=== PATIENT | female | born 1960 | race Caucasian/White ===

== ENCOUNTER → 2016-06-01 | Day surgery (SDC) | payer OTHER | END | disposition home or self-care (01) | LOC: FAS 06:50 | DX: Z12.11 Encounter for screening for malignant neoplasm of colon (principal); K63.5 Polyp of colon; Z86.010 Personal history of colon polyps; Z79.899 Other long term (current) drug therapy; Z90.49 Acquired absence of other specified parts of digestive tract; Z98.890 Other specified postprocedural states; Z90.710 Acquired absence of both cervix and uterus; Z80.0 Family history of malignant neoplasm of digestive organs | CPT/HCPCS: 88305; J2704 ==

== ENCOUNTER → 2021-08-18 | Day surgery (SDC) | payer OTHER ==
[~2021-08-18] VITALS: Ht 165.1 cm; Wt 57.4 kg
[~2021-08-18] MED LIST: ALEVE220 MG PO; ANTIVERT25 MG PO; BONIVA 150MG T150 MG PO; GABAPENTIN400 MG PO; KEFLEX500 MG PO; NORCO 5-325 TA1 EACH PO; PHENERGAN12.5 M1 PO
== END | disposition home or self-care (01) ==
LOC: FAS 06:52
DX: Z12.11 Encounter for screening for malignant neoplasm of colon (principal); D12.3 Benign neoplasm of transverse colon; K62.1 Rectal polyp; K57.30 Diverticulosis of large intestine without perforation or abscess without bleeding; F17.200 Nicotine dependence, unspecified, uncomplicated; Z80.0 Family history of malignant neoplasm of digestive organs; Z86.010 Personal history of colon polyps
CPT/HCPCS: J2704; J7120